=== PATIENT | female | born 1985 | race Two or more races ===

== ENCOUNTER 2021-01-19 12:15 | Emergency (ER) | payer SELFPAY ==
[~2021-01-19] VITALS: Ht 157.5 cm; Wt 75.0 kg
[2021-01-19] MEDS ORDERED: IV NORMAL SALINE 1000ML BAG 1,000 ML IV ONE (13:00)
--- NOTE | 2021-01-19 13:09 | PHYS DOC ---
Past Medical History Past Surgical History: No Surgical History Smoking Status: Never Smoker Alcohol Use: None General Adult EDM: Chief Complaint: DIZZY/LIGHT HEADED HPI: HPI: Patient is a 35 year old female with no significant medical history who presents the ED today complaining of dizziness. Patient states symptoms began in 2017 and then went away, she states the reoccurred 2 weeks ago and has been happening intermittently since then. Patient describes her dizziness as a sensation of everything going dark, heart rate going up and she becomes weak. Patient denies passing out. Patient denies anything specific and exacerbating or relieving her symptoms. She states her last menstrual cycle was December 02 2020 and she is trying to get . Denies any dizziness in the ED. She states she had an episode at work and was sent to the ED to be evaluated. Review of Systems: Review of Systems: Constitutional: Denies fever or chills. [] Eyes: Denies change in visual acuity. [] HENT: Denies nasal congestion or sore throat. [] Respiratory: Denies cough or shortness of breath. [] Cardiovascular: Denies chest pain or edema. [] GI: Denies abdominal pain, nausea, vomiting, bloody stools or diarrhea. [] : Denies dysuria. [] Musculoskeletal: Denies back pain or joint pain. [] Integument: Denies rash. [] Neurologic: Reports dizziness. Denies headache, focal weakness or sensory changes. [] Psychiatric: Denies depression or anxiety. [] Heart Score: C/O Chest Pain: N/A Risk Factors: Risk Factors: DM, Current or recent (<one month) smoker, HTN, HLP, family history of CAD, obesity. Risk Scores: Score 0 - 3: 2.5% MACE over next 6 weeks - Discharge Home Score 4 - 6: 20.3% MACE over next 6 weeks - Admit for Clinical Observation Score 7 - 10: 72.7% MACE over next 6 weeks - Early Invasive Strategies Current Medications: Current Medications Medications (Trade) Dose Ordered Sig/Caden Start Time Stop Time Status Last Admin Dose Admin Sodium Chloride 1,000 ml @ 1,000 mls/hr 1X ONCE 01/19/21 13:00 01/19/21 13:59 Allergies: Allergies: Allergies Coded Allergies Type Severity Reaction Last Updated Verified No Known Drug Allergies 01/19/21 No Physical Exam: PE: Constitutional: Well developed, well nourished, no acute distress, non-toxic appearance. [] HENT: Normocephalic, atraumatic, bilateral external ears normal, oropharynx moist, no oral exudates, nose normal. [] Eyes: PERRLA, EOMI, conjunctiva normal, no discharge. [] Neck: Normal range of motion, no tenderness, supple, no stridor. [] Cardiovascular:Heart rate regular rhythm, no murmur [] Lungs & Thorax: Bilateral breath sounds clear to auscultation [] Abdomen: Bowel sounds normal, soft, no tenderness, no masses, no pulsatile masses. [] Skin: Warm, dry, no erythema, no rash. [] Back: No tenderness, no CVA tenderness. [] Extremities: No tenderness, no cyanosis, no clubbing, ROM intact, no edema. [] Neurologic: Alert and oriented X 3, normal motor function, normal sensory function, no focal deficits noted. Cranial nerves II through XII intact Psychologic: Affect normal, judgement normal, mood normal. [] Current Patient Data: Vital Signs: Vital Signs Date Time Temp Pulse Resp B/P (MAP) Pulse Ox O2 Delivery O2 Flow Rate FiO2 01/19/21 12:20 98.2 100 16 148/89 (108) 100 Room Air 98.2 EKG: EK interpreted by Dr. Meek, sinus rhythm with incomplete right bundle branch block, inverted T waves in lead III, no STEMI. Radiology/Procedures: Radiology/Procedures: []PROCEDURE: CT HEAD WO CONTRAST EXAMINATION: CT head without IV contrast. INDICATION:35 years, Female, dizziness. COMPARISON: None TECHNIQUE: Spiral acquisition of contiguous images from the skull base to the vertex were obtained. Sagittal and coronal 2D reformatted series were provided by the technologist. Soft tissue and bone window algorithms were reviewed. Exposure: One or more of the following individualized dose reduction techniques were utilized for this examination: 1. Automated exposure control 2. Adjustment of the mA and/or kV according to patient size 3. Use of iterative reconstruction technique. FINDINGS: Neither mass, midline shift, intracranial hemorrhage, acute/subacute ischemic changes, nor extraaxial fluid collections are seen. The brain parenchyma is normal in appearance. The ventricles are normal in size. The paranasal sinuses, mastoid air cells, and middle ears are clear.The orbital contents appear within normal limits. IMPRESSION: No evidence of acute intracranial abnormality. Electronically signed by: Kelli Dolan MD (01/19/2021 1:31 PM) [id number] DICTATED and SIGNED BY: KELLI DOLAN MD DATE: 01/19/21 [id number] PROCEDURE: PORTABLE CHEST 1V Single view of the chest. 01/19/2021 12:53 PM Indication: Reason: dizziness/PREG TEST FIRST / Comparison: None Findings: There is no focal consolidation. There is no pleural effusion or pneumothorax. The cardiomediastinal silhouette and pulmonary vasculature are within normal limits. No acute osseous abnormalities are seen. Impression: No evidence of acute cardiopulmonary process. Electronically signed by: Alcides Montero MD (01/19/2021 1:26 PM) [id number] DICTATED and SIGNED BY: ALCIDES MONTERO MD DATE: 01/19/21 [id number] Course & Med Decision Making: Course & Med Decision Making Pertinent Labs and Imaging studies reviewed. (See chart for details) This a 35-year-old patient presented to the ED today with dizziness that began 2 weeks ago. Has had similar symptoms in 2017. See HPI Vitals on arrival to the ED temperature 98.2, heart rate 100, respirations 16 on room air, blood pressure 148/89, O2 sats 100% on room air. After acouple minutes in the ED blood pressure went down to 114/60 with a heart rate of 66. CBC with a normal WBC, hemoglobin 11.8 with hematocrit of 36.3. CMP with no acute findings, D-dimer <0.27, troponin is normal, UA noted for moderate amount of leukocytes, squamous cells epithelium, this is a contaminated specimen, patient denies any UTI symptoms. CT of the head is negative, chest x-ray is negative. Patient was given a liter of fluid. She has no dizziness in the emergency room. She was discharged to home. Recommended following up with the PCP in the next 7 days. Provided return precautions and discharged in stable condition Dragon Disclaimer: Farida Disclaimer: This electronic medical record was generated, in whole or in part, using a voice recognition dictation system. Departure Departure Impression: Primary Impression: Near syncope Additional Impressions: Dizziness Tachycardia Disposition: HOME / SELF CARE / HOMELESS Condition: STABLE Patient Instructions: Dizziness, [id number], Near-Syncope Additional Instructions: You were evaluated in the emergency room, your CT of the head is negative, chest x-ray is negative, your lab work is negative for any acute findings. We encourage you to change positions slowly. Push fluids. Come back to the ED at any point symptoms worsen. Follow-up with your doctor in 1 week BAM EATON APRN Jan 19, 2021 13:09
[2021-01-19 13:24] LABS: BASO # 0.1 x10^3/uL (0.0-0.2); BASO % 1 % (0-3); EOS # 0.2 x10^3/uL (0.0-0.7); EOS % 2 % (0-3); HEMATOCRIT 36.3 % (36.0-47.0); HEMOGLOBIN 11.8 g/dL (12.0-15.5); LYMPH # 3.5 x10^3/uL (1.0-4.8); LYMPH % 51 % (24-48); MEAN CORPUSCULAR HEMOGLOBIN 26 pg (25-35); MEAN CORPUSCULAR HGB CONC 33 g/dL (31-37); MEAN CORPUSCULAR VOLUME 80 fL (79-100); MONO # 0.5 x10^3/uL (0.0-1.1); MONO % 7 % (0-9); NEUT # 2.6 x10^3/uL (1.8-7.7); NEUT % 38 % (31-73); PLATELET COUNT 320 x10^3/uL (140-400); RED BLOOD COUNT 4.54 x10^6/uL (3.50-5.40); RED CELL DISTRIBUTION WIDTH 14.5 % (11.5-14.5); WHITE BLOOD COUNT 6.8 x10^3/uL (4.0-11.0)
--- NOTE | 2021-01-19 13:28 | RAD ---
Single view of the chest. 01/19/2021 12:53 PM Indication: Reason: dizziness/PREG TEST FIRST / Comparison: None Findings: There is no focal consolidation. There is no pleural effusion or pneumothorax. The cardiome diastinal silhouette and pulmonary vasculature are within normal limits. No acute osseous abnormaliti es are seen. Impression: No evidence of acute cardiopulmonary process. Electronically signed by: Alcides Ceballos MD (01/19/2021 1:26 PM) [id number]
--- NOTE | 2021-01-19 13:34 | RAD ---
EXAMINATION: CT head without IV contrast. INDICATION:35 years, Female, dizziness. COMPARISON: None TECHNIQUE: Spiral acquisition of contiguous images from the skull base to the vertex were obtained. S agittal and coronal 2D reformatted series were provided by the technologist. Soft tissue and bone win curtis algorithms were reviewed. Exposure: One or more of the following individualized dose reduction techniques were utilized for thi s examination: 1. Automated exposure control 2. Adjustment of the mA and/or kV according to patient size 3. Use of iterative reconstruction technique. FINDINGS: Neither mass, midline shift, intracranial hemorrhage, acute/subacute ischemic changes, nor extraaxial fluid collections are seen. The brain parenchyma is normal in appearance. The ventricles are normal in size. The paranasal sinuses, mastoid air cells, and middle ears are clear.The orbital contents appear withi n normal limits. IMPRESSION: No evidence of acute intracranial abnormality. Electronically signed by: Manas Dolan MD (01/19/2021 1:31 PM) [id number]
[2021-01-19 13:41] LABS: CREATININE 0.6 mg/dL (0.6-1.0); GFR 114.4
[2021-01-19 13:47] LABS: ALBUMIN 3.5 g/dL (3.4-5.0); MAGNESIUM 2.1 mg/dL (1.8-2.4); TOTAL BILIRUBIN 0.4 mg/dL (0.2-1.0); TOTAL PROTEIN 7.1 g/dL (6.4-8.2)
--- NOTE | 2021-01-19 13:52 | EKG ---
[facility] [address] [place] [address] Test Date: 2021-01-19 Test Time: 13:05:06 Pat Name: AGNES LAURA Department: Room: Gender: F [employer]: : 1985 Requested By: BAM EATON Order Number: [id number] Reading MD: Measurements Intervals [place] Rate: 61 P: 11 OR: 134 QRS: 9 QRSD: 92 T: 9 QT: 420 QTc: 424 Interpretive Statements SINUS RHYTHM INCOMPLETE RIGHT BUNDLE BRANCH BLOCK NO SPECIFIC ECG ABNORMALITIES RI6.01 No previous ECG available for comparison
[2021-01-19 13:57] LABS: BILIRUBIN,URINE NEGATIVE (NEG); CLARITY,URINE CLOUDY; COLOR,URINE YELLOW; NITRITE,URINE NEGATIVE (NEG); PH,URINE 5.5 (<5.0-8.0); PROTEIN,URINE NEGATIVE (NEG-TRACE); UROBILINOGEN,URINE 0.2 mg/dL (0.2 mg/dL)
[2021-01-19 14:04] LABS: BARBITURATES NEG (NEG); BENZODIAZEPINES NEG (NEG); CANNABINOIDS NEG (NEG); COCAINE NEG (NEG); METHADONE NEG (NEG); OPIATES NEG (NEG); PHENCYCLIDINE NEG (NEG)
[2021-01-19 14:06] LABS: AMPHETAMINE/METHAMPHETAMINE NEG (NEG)
[2021-01-19 14:17] LABS: BACTERIA,URINE MODERATE /HPF (0-FEW); RBC,URINE 0 /HPF (0-2)
[2021-01-19 14:30] VITALS: BP 110/71
== END 2021-01-19 14:45 | disposition home or self-care (01) ==
LOC: ER 12:15
DX: R55 Syncope and collapse (principal); R42 Dizziness and giddiness; R00.0 Tachycardia, unspecified; R51.9 Headache, unspecified
CPT/HCPCS: 36415; 70450; 71045; 80053; 80307; 81001; 81025; 83735; 83880; 84443; 84484; 85025; 85379; 87086; 93005; 96360; 99285; J7030